=== PATIENT | male | born 1945 | race Caucasian/White ===

== ENCOUNTER 2016-05-10 04:44 | Inpatient (IN) | payer MEDICARE ==
[2016-05-10 05:56] LABS: Basophils % (Auto) 0.5 % (0.0-1.8); Eosinophils % (Auto) 2.6 % (0.0-4.3); Hematocrit 41.2 % (35.5-45.6); Hemoglobin 13.8 gm/dl (11.8-15.2); Mean Corpuscular HGB Conc 34 % (32-34); Mean Corpuscular Hemoglobin 29 pg (28-32); Mean Corpuscular Volume 88 fl (84-94); Platelet Count 417 K/mm3 (140-440); Red Cell Distribution Width 14.3 % (13.2-15.2); White Blood Count 14.8 K/mm3 (4.5-11.0)
[2016-05-10 06:09] LABS: BUN/Creatinine Ratio 17.77; Blood Urea Nitrogen 16 mg/dL (9-20); Carbon Dioxide 23 mmol/L (22-30); Glucose 342 mg/dL (75-100); Potassium 4.3 mmol/L (3.6-5.0); Sodium 136 mmol/L (137-145)
[2016-05-10 06:13] LABS: Anion Gap 20 mmol/L
[2016-05-10] MEDS ORDERED: ROCEPHIN/NS 1 GM/50 ML 50 ML IV ONE (06:16)
[2016-05-10 07:00] LABS: INR 0.85 (0.87-1.13)
[2016-05-10 07:01] LABS: Partial Thromboplastin Time 28.1 Sec. (24.2-36.6)
[2016-05-10 07:09] LABS: Creatine Kinase MB 2.7 ng/mL (0.0-4.0)
[2016-05-10 07:10] LABS: Alanine Aminotransferase 20 units/L (7-56); Albumin 3.8 g/dL (3.9-5); Alkaline Phosphatase 140 units/L (35-129); Bilirubin,Total 0.4 mg/dL (0.1-1.2); Magnesium 1.7 mg/dL (1.7-2.3); Total Protein 7.7 g/dL (6.3-8.2)
--- NOTE | 2016-05-10 07:24 | Admit Criteria Form ---
Admission Criteria Documentation: CARDIOLOGY GRG Clinical Indications for Admission to Inpatient Care ( Place 'X' for any and all applicable criteria): Hospital admission is needed for appropriate care of the patient because of ANY ONE of the following (1): [X ] I. Hemodynamic instability as indicated by ALL of the following (1)(2)(3 )(4)(5) [X ]a) Vital signs or other findings not as expected for chronic patient condition or baseline [ X]b) Instability indicated by ANY ONE of the following: [X ]i) Hypotension [ ]ii) Symptomatic Tachycardia unresponsive to treatment ( e.g., analgesia, fluids, sedation as indicated) [ ]iii) Inadequate perfusion indicated by ANY ONE of the following: [ ] 1) Lactic acidosis (> 2 mmol/L) [ ] 2) New abnormal capillary refill (> 3 seconds) [ ] 3) Reduced urine output [ ] 4) New altered mental status [ ]iv) Orthostatic vital sign changes unresponsive to treatment (e.g., fluids) [ ]v) IV inotropic or vasopressor medication required to maintain adequate blood pressure or perfusion [ ] II. Severe heart failure as indicated by ANY ONE of the following(17)(18) [ ]a) Respiratory distress [ ]b) Hypotension [ ]c) Anasarca (refractory to outpatient therapy) [ ]d) Cardiac arrhythmias of immediate concern [ ]e) Myocardial ischemia [ ] III. Cardiac arrhythmias or findings of immediate concern indicated by ANY ONE of the following (19)(20): [ ] a) Heart rhythms that are inherently dangerous or unstable indicated by ANY ONE of the following (21)(22)(23): [ ] i) Resuscitated ventricular fibrillation or cardiac arrest [ ] ii) Ventricular escape rhythm [ ] iii) Sustained ventricular tachycardia (30 seconds or more of ventricular rhythm at greater than 100 beats per minute) [ ] iv) Nonsustained ventricular tachycardia and ANY ONE of the following: [ ] 1) Suspected cardiac ischemia as cause or consequence of ventricular tachycardia [ ] 2) In setting of acute myocarditis [ ] b) Unstable cardiac conduction defects indicated by ANY ONE of the following(23)(24)(25) [ ] i) Type II second-degree atrioventricular block [ ]ii) Third-degree atrioventricular block [ ]iii) New-onset left bundle branch block with suspected myocardial ischemia [ ]c) Any heart rhythm and ANY ONE of the following (21)(22)(26)(27) (28) [ ] i) Continuous long-term ECG monitoring needed (e.g., initiation of drug requiring monitoring for more than 24 hours) [ ] ii) Patient has automatic implanted cardioverter defibrillator that is repeatedly firing, malfunctioning, or in need of immediate adjustment of settings beyond the scope of ambulatory or observation care [ ]d) Heart rhythms of concern due to ANY ONE of the following: [ ] i) Hypotension [ ] ii) Respiratory distress [ ] iii) Association with other significant symptoms (e.g., bradycardia with syncope or ongoing dizziness, supraventricular tachycardia with chest pain (14)(15)(17) [ ] IV. Monitoring for cardiac contusion beyond the scope of observation care needed [A](30)(31)(32) [ ] V. Surgical or device complication (e.g., valve replacement complication , pacemaker dysfunction) (35)(41)(44)(45)(46) [ ] . Inpatient palliative care needed. [B](49) Also use Inpatient Palliative Care Criteria [ ] VII. Nonbacterial thrombotic (marantic) endocarditis (36)(43)(47)(48) [ ] VIII. Cardiology condition, symptom, or finding for which emergency and observation care has failed or are not considered appropriate. [ ] IX. Acute valvular disease requiring inpatient as indicated by ANY ONE of the following (41) [ ]a) Acute valvular regurgitation (42) [ ]b) Noninfectious valvulitis (43) [ ]c) Obstructive valve thrombosis [ ]d) Paravalvular leak [ ]e) Other significant valvular disorder remaining after emergency or observation level of care (as appropriate) [ ]X. Pericardial disease requiring inpatient treatment as indicated by ANY ONE of the following (33)(34)(35)(36)(37) [ ]a) Suspected tamponade (38)(39)(40) [ ]b) Hemopericardium [ ]c) Other significant pericardial disorder remaining after emergency or observation level of care (as appropriate) [ ] XI. Cardiac ischemia beyond scope of emergency and observation care. [ ] XII. Hypertension requiring inpatient treatment as indicated by ANY ONE of the following (6)(7)(8) [ ]a) SBP greater than 220 mm Hg or DBP greater than 120 mmHg despite treatment [ ]b) SBP greater than 140 mm Hg or DBP greater than 100 mm Hg with evidence of acute end organ damage as indicated by ANY ONE of the following [ ] i) Altered mental status [ ] ii) Acute renal failure as indicated by new onset of ANY ONE of the following (9)(10)(11)(12)(13) [ ]1) 3-fold rise in serum creatinine from baseline [ ]2) Serum creatinine greater than 4 mg/dL ( 354 micromoles/L) with acute rise greater than 0.5 mg/dL (44.2 micromoles/L) [ ]3) Reduction of more than 75% in estimated glomerular filtration rate from baseline [ ]4) Estimated glomerular filtration rate less than 35 mL/min/1.73m2 (0.59 mL/sec/1.73m2) in child up to 18 years of age [ ]5) Cessation of urine output indicated by ALL of the following [ ]A. Adequate volume status [ ]B. Inadequate urine output as indicated by ANY ONE of the following [ ]a. Urine output less than 0.3 mL/kg/hr for 24 hours [ ]b. Anuria (urine output less than 0.1 mL/kg/hr) for 12 hours [ ] iii) Aortic dissection [ ] iv) Myocardial Ischemia [ ] v) Left ventricular heart failure [ ]vi) Retinal Hemorrhage [ ]vii) Other significant finding [ ]c) Hypertension in child requiring inpatient treatment as indicated by ALL of the following(14)(15)(16) [ ] i) Outpatient treatment not effective, not available, or not appropriate [ ]ii) SBP or DBP greater than 95th percentile for age [ ]iii) Evidence of acute end organ damage as indicated by ANY ONE of the following [ ]1) Altered mental status [ ]2) Acute renal failure as indicated by new onset of ANY ONE of the following(9)(10)(11)(12)(13) [ ]A. 3-fold rise in serum creatinine from baseline [ ]B. Serum creatinine greater than 4 mg/dL (354 micromoles/L) with acute rise greater than 0.5 mg/dL (44.2 micromoles/L) [ ]C. Reduction of more than 75% in estimated glomerular filtration rate from baseline [ ]D. Estimated glomerular filtration rate less than 35 mL/min/1.73m2 (0.59 mL/sec/1.73m2) in child up to 18 years of age [ ]E. Cessation of urine output indicated by ALL of the following [ ]a. Adequate volume status [ ]b. Inadequate urine output as indicated by ANY ONE of the following [ ]i) Urine output less than 0.3 mL/kg/hr for 24 hours [ ]ii) Anuria ( urine output less than 0.1 mL/kg/hr) for 12 hours [ ]3) Severe headache [ ]4) Visual disturbance [ ]5) Retinal hemorrhage [ ]6) Other significant finding [ ]XIII. Complications of transplanted heart indicated by ANY ONE of the following(61): [ ]a) Acute graft rejection requiring inpatient management (eg, intravenous immunosuppression)(62)(63) [ ]b) Acute graft heart failure indicated by ANY ONE of the following(64): [ ]i) Hemodynamic instability [ ]ii) Cardiac arrhythmias of immediate concern [ ]iii) Pulmonary edema that is very severe (eg, mechanical ventilation needed, imminent or likely, need for 100% oxygen to keep oxygen saturation above 90%) [ ]iv) Pulmonary edema that is persistent as indicated by ALL of the following: [ ]1) New need for oxygen therapy to keep oxygen saturation above 90% (or increased FiO2 need from baseline) [ ]2) Has not improved sufficiently with emergency department or observation care IV diuretics or other heart failure treatments[E] [ ]v) Altered mental status that is severe or persistent [ ]vi) Increased creatinine (new on laboratory test) with reduction of more than 50% in estimated glomerular filtration rate from baseline [ ]vii) Progressively (ongoing) rising creatinine (known from past laboratory test) with reduction of more than 25% in estimated glomerular filtration rate from baseline [ ]viii) Acute renal failure [ ]ix) Acute peripheral ischemia (eg, examination shows pulseless, cool, mottled, or cyanotic extremity) [ ]x) Pulmonary artery catheter monitoring needed [ ]xi) Other sign or symptom of heart failure requiring inpatient treatment (ie, too severe or not responsive to outpatient and observation care treatment) [ ]c) Infection requiring inpatient management (eg, Hemodynamic instability, need for intravenous antimicrobial treatment)(66)(67)(68)(69)(70) [ ]d) Cardiac allograft vasculopathy requiring inpatient management ( eg evidence of cardiac ischemia)(71) [ ]e) Other complication of transplanted heart (eg, stroke, severe pulmonary hypertension, severe valvular dysfunction) requiring inpatient management(72) The original [facility] content created by [email or web address] has been revised. The portions of the content which have been revised are identified through the use of italic text or in bold, and [facility] has neither reviewed nor approved the modified material. All other unmodified content is copyright [email or web address]. Please see references footnoted in the original [facility] edition 2016 Admission Criteria Met: Yes
[2016-05-10 07:31] LABS: Bilirubin,Direct < 0.2 mg/dL (0-0.2)
--- NOTE | 2016-05-10 07:51 | Emergency Department Report ---
ED General Adult HPI - General Chief complaint: High BP Stated complaint: HYPERTENSIVE CRISIS Time Seen by Provider: 05/10/16 06:12 Source: patient, family Mode of arrival: Stretcher Limitations: Language Barrier - History of Present Illness Initial comments: Is a patient that was transported deferred to this facility for admission for uncontrolled swings in blood pressure. According to his son he went to [place] yesterday for a routine visit. He was found to be hypotensive. He was placed in a CDU. According to the available information he has a history of chronic hypertension coronary artery disease hyperlipidemia anemia colonic polyps and diabetes. He arrives with blood work from the CDU of [place]. He is noted to have a white count there of 10.6 hemoglobin 12.5 daily count of 384,000 electrolytes to include a glucose of 358 BUN of 24 creatinine of 1.4 and a normal CO2. His anion gap was 10. He had an elevated lactic acid of 2.9. Troponin was negative. I do not believe he was given antibiotics. Apparently this morning after the patient had been given IV fluids he was hypertensive. Therefore the [place] physician gave him IV hydralazine and labetalol prior to arrival. His initial blood pressure here was really quite elevated at 244/130. However, with his recent prescription of IV antihypertensive medication I awaited further readings. The blood pressure was next at about 170/100 or so. Subsequently without additional intervention the patient's blood pressure dropped again into the 70s. He was given some IV fluid. His blood pressure was again hypertensive. The last blood pressure is 131/74. I obtained blood cultures and gave him 1 dose of ceftriaxone consideration of his hypotension and elevated lactic acid level at the [place] CDU. At the time of my encounter the patient has no complaint of pain to of weakness no complaint of neurological symptoms. He has had no respiratory difficulty. -: hour(s) Severity scale (0 -10): 0 Treatments Prior to Arrival: other (see above) - Related Data Home Medications Medication Instructions Recorded Confirmed Last Taken Aspirin EC [Aspirin Enteric Coated 81 mg PO QDAY 02/03/16 02/03/16 Unknown TAB] AtorvaSTATin [Lipitor] 40 mg PO DAILY 02/03/16 02/03/16 Unknown Carvedilol [Coreg] 3.125 mg PO BID 02/03/16 02/03/16 Unknown Clopidogrel [Plavix] 75 mg PO QDAY 02/03/16 02/03/16 Unknown FLUoxetine [PROzac] 40 mg PO QDAY 02/03/16 02/03/16 Unknown Insulin Aspart [NovoLOG Flexpen] 8 units SQ AC 02/03/16 02/03/16 Unknown Insulin Detemir [Levemir VIAL] 35 unit SQ QHS 02/03/16 02/03/16 Unknown Tamsulosin [Flomax] 0.4 mg PO QDAY 02/03/16 02/03/16 Unknown Previous Rx's Medication Instructions Recorded Last Taken Type Famotidine/Ca Carb/Mag Hydrox 1 each PO BID #20 tab.chew 02/06/16 Unknown Rx [Pepcid Complete Tablet Chew] Oxycodone HCl/Acetaminophen 1 each PO Q12H PRN #10 tablet 02/06/16 Unknown Rx [Percocet 2.5/325 mg] Allergies Allergy/AdvReac Type Severity Reaction Status Date / Time No Known Allergies Allergy Unverified 02/24/13 08:38 ED Review of Systems ROS: Stated complaint: HYPERTENSIVE CRISIS Other details as noted in HPI Constitutional: denies: chills, fever Eyes: denies: eye pain, eye discharge, vision change ENT: denies: ear pain, throat pain Respiratory: denies: cough, shortness of breath, wheezing Cardiovascular: denies: chest pain, palpitations Endocrine: no symptoms reported Gastrointestinal: denies: abdominal pain, nausea, diarrhea Genitourinary: denies: urgency, dysuria Musculoskeletal: denies: back pain, joint swelling, arthralgia Skin: denies: rash, lesions Neurological: denies: headache, weakness, paresthesias Psychiatric: denies: anxiety, depression Hematological/Lymphatic: denies: easy bleeding, easy bruising ED Past Medical Hx - Past Medical History Hx Hypertension: Yes Hx CVA: Yes Hx Heart Attack/AMI: No Hx Congestive Heart Failure: No Hx Diabetes: Yes Hx Deep Vein Thrombosis: No Hx GERD: Yes Hx Renal Disease: Yes (CKD 3) Hx Seizures: No Hx Dementia: No Additional medical history: chronic kidney disease, neuropathy, hyperlipidemia, anemia - Surgical History Hx Coronary Stent: No Additional Surgical History: pt family stated no surgeries - Social History Smoking Status: Never Smoker Substance Use Type: None - Medications Home Medications: Home Medications Medication Instructions Recorded Confirmed Last Taken Type Aspirin EC [Aspirin Enteric Coated 81 mg PO QDAY 02/03/16 02/03/16 Unknown History TAB] AtorvaSTATin [Lipitor] 40 mg PO DAILY 02/03/16 02/03/16 Unknown History Carvedilol [Coreg] 3.125 mg PO BID 02/03/16 02/03/16 Unknown History Clopidogrel [Plavix] 75 mg PO QDAY 02/03/16 02/03/16 Unknown History FLUoxetine [PROzac] 40 mg PO QDAY 02/03/16 02/03/16 Unknown History Insulin Aspart [NovoLOG Flexpen] 8 units SQ AC 02/03/16 02/03/16 Unknown History Insulin Detemir [Levemir VIAL] 35 unit SQ QHS 02/03/16 02/03/16 Unknown History Tamsulosin [Flomax] 0.4 mg PO QDAY 02/03/16 02/03/16 Unknown History Famotidine/Ca Carb/Mag Hydrox 1 each PO BID #20 tab.chew 02/06/16 Unknown Rx [Pepcid Complete Tablet Chew] Oxycodone HCl/Acetaminophen 1 each PO Q12H PRN #10 tablet 02/06/16 Unknown Rx [Percocet 2.5/325 mg] ED Physical Exam - General Limitations: No Limitations General appearance: alert, in no apparent distress - Head Head exam: Present: atraumatic, normocephalic - Eye Eye exam: Present: normal appearance, PERRL, EOMI. Absent: scleral icterus - ENT ENT exam: Present: mucous membranes moist - Neck Neck exam: Present: normal inspection - Respiratory Respiratory exam: Present: normal lung sounds bilaterally. Absent: respiratory distress - Cardiovascular Cardiovascular Exam: Present: regular rate, normal rhythm. Absent: systolic murmur, diastolic murmur, rubs, gallop - GI/Abdominal GI/Abdominal exam: Present: soft, normal bowel sounds. Absent: distended, tenderness, guarding, rebound, rigid - Rectal Rectal exam: Present: deferred - Extremities Exam Extremities exam: Present: normal inspection - Back Exam Back exam: Present: normal inspection - Neurological Exam Neurological exam: Present: alert, oriented X3, CN II-XII intact. Absent: motor sensory deficit - Psychiatric Psychiatric exam: Present: normal affect, normal mood - Skin Skin exam: Present: warm, dry, intact, normal color. Absent: rash ED Course Vital Signs 05/10/16 05/10/16 05/10/16 04:51 05:01 05:06 Temperature 97.9 F Pulse Rate 80 81 81 Respiratory 14 13 Rate Blood Pressure 244/130 244/130 O2 Sat by Pulse 98 98 98 Oximetry 05/10/16 05/10/16 05/10/16 05:12 06:00 07:00 Temperature Pulse Rate 86 87 Respiratory 18 12 14 Rate Blood Pressure 225/122 186/107 O2 Sat by Pulse 98 97 97 Oximetry 05/10/16 05/10/16 05/10/16 07:03 08:00 09:00 Temperature Pulse Rate 88 86 90 Respiratory 13 14 14 Rate Blood Pressure 186/107 163/92 72/46 O2 Sat by Pulse 97 98 96 Oximetry - Reevaluation(s) Reevaluation #1: Discussed with Dr. Jolley who is admitted the patient to the hospitalist service. 05/10/16 10:58 ED Medical Decision Making - Lab Data Result diagrams: 05/10/16 05:33 05/10/16 05:33 Laboratory Results - last 24 hr 05/10/16 05/10/16 05/10/16 05:33 05:33 06:28 WBC 14.8 H RBC 4.70 Hgb 13.8 Hct 41.2 MCV 88 MCH 29 MCHC 34 RDW 14.3 Plt Count 417 Lymph % (Auto) 15.9 Dillon % (Auto) 4.9 Eos % (Auto) 2.6 Baso % (Auto) 0.5 Lymph # 2.4 Dillon # 0.7 Eos # 0.4 Baso # 0.1 Seg Neutrophils % 76.1 H Seg Neutrophils # 11.3 H PT 11.5 L INR 0.85 L APTT 28.1 Sodium 136 L Potassium 4.3 Chloride 97.0 L Carbon Dioxide 23 Anion Gap 20 BUN 16 Creatinine 0.9 Estimated GFR > 60 BUN/Creatinine Ratio 17.77 Glucose 342 H Lactic Acid Calcium 9.0 Magnesium Total Bilirubin Direct Bilirubin AST ALT Alkaline Phosphatase Total Creatine Kinase CK-MB (CK-2) CK-MB (CK-2) Rel Index Troponin T Total Protein Albumin Albumin/Globulin Ratio Ketones 05/10/16 05/10/16 05/10/16 06:28 06:28 06:28 WBC RBC Hgb Hct MCV MCH MCHC RDW Plt Count Lymph % (Auto) Dillon % (Auto) Eos % (Auto) Baso % (Auto) Lymph # Dillon # Eos # Baso # Seg Neutrophils % Seg Neutrophils # PT INR APTT Sodium Potassium Chloride Carbon Dioxide Anion Gap BUN Creatinine Estimated GFR BUN/Creatinine Ratio Glucose Lactic Acid 1.4 Calcium Magnesium 1.7 Total Bilirubin 0.4 Direct Bilirubin < 0.2 AST 21 ALT 20 Alkaline Phosphatase 140 H Total Creatine Kinase 58 CK-MB (CK-2) 2.7 CK-MB (CK-2) Rel Index 4.6 H Troponin T < 0.010 Total Protein 7.7 Albumin 3.8 L Albumin/Globulin Ratio 1.0 Ketones 05/10/16 06:28 WBC RBC Hgb Hct MCV MCH MCHC RDW Plt Count Lymph % (Auto) Dillon % (Auto) Eos % (Auto) Baso % (Auto) Lymph # Dillon # Eos # Baso # Seg Neutrophils % Seg Neutrophils # PT INR APTT Sodium Potassium Chloride Carbon Dioxide Anion Gap BUN Creatinine Estimated GFR BUN/Creatinine Ratio Glucose Lactic Acid Calcium Magnesium Total Bilirubin Direct Bilirubin AST ALT Alkaline Phosphatase Total Creatine Kinase CK-MB (CK-2) CK-MB (CK-2) Rel Index Troponin T Total Protein Albumin Albumin/Globulin Ratio Ketones 6.1 H Laboratory Results - last 24 hr 05/10/16 05/10/16 05/10/16 05:33 05:33 06:28 WBC 14.8 H RBC 4.70 Hgb 13.8 Hct 41.2 MCV 88 MCH 29 MCHC 34 RDW 14.3 Plt Count 417 Lymph % (Auto) 15.9 Dillon % (Auto) 4.9 Eos % (Auto) 2.6 Baso % (Auto) 0.5 Lymph # 2.4 Dillon # 0.7 Eos # 0.4 Baso # 0.1 Seg Neutrophils % 76.1 H Seg Neutrophils # 11.3 H PT 11.5 L INR 0.85 L APTT 28.1 Sodium 136 L Potassium 4.3 Chloride 97.0 L Carbon Dioxide 23 Anion Gap 20 BUN 16 Creatinine 0.9 Estimated GFR > 60 BUN/Creatinine Ratio 17.77 Glucose 342 H Lactic Acid Calcium 9.0 Magnesium Total Bilirubin Direct Bilirubin AST ALT Alkaline Phosphatase Total Creatine Kinase CK-MB (CK-2) CK-MB (CK-2) Rel Index Troponin T Total Protein Albumin Albumin/Globulin Ratio Ketones 05/10/16 05/10/16 05/10/16 06:28 06:28 06:28 WBC RBC Hgb Hct MCV MCH MCHC RDW Plt Count Lymph % (Auto) Dillon % (Auto) Eos % (Auto) Baso % (Auto) Lymph # Dillon # Eos # Baso # Seg Neutrophils % Seg Neutrophils # PT INR APTT Sodium Potassium Chloride Carbon Dioxide Anion Gap BUN Creatinine Estimated GFR BUN/Creatinine Ratio Glucose Lactic Acid 1.4 Calcium Magnesium 1.7 Total Bilirubin 0.4 Direct Bilirubin < 0.2 AST 21 ALT 20 Alkaline Phosphatase 140 H Total Creatine Kinase 58 CK-MB (CK-2) 2.7 CK-MB (CK-2) Rel Index 4.6 H Troponin T < 0.010 Total Protein 7.7 Albumin 3.8 L Albumin/Globulin Ratio 1.0 Ketones 05/10/16 06:28 WBC RBC Hgb Hct MCV MCH MCHC RDW Plt Count Lymph % (Auto) Dillon % (Auto) Eos % (Auto) Baso % (Auto) Lymph # Dillon # Eos # Baso # Seg Neutrophils % Seg Neutrophils # PT INR APTT Sodium Potassium Chloride Carbon Dioxide Anion Gap BUN Creatinine Estimated GFR BUN/Creatinine Ratio Glucose Lactic Acid Calcium Magnesium Total Bilirubin Direct Bilirubin AST ALT Alkaline Phosphatase Total Creatine Kinase CK-MB (CK-2) CK-MB (CK-2) Rel Index Troponin T Total Protein Albumin Albumin/Globulin Ratio Ketones 6.1 H - EKG Data -: EKG Interpreted by Me EKG shows normal: sinus rhythm, axis, intervals, QRS complexes, ST-T waves Rate: normal - EKG Data When compared to previous EKG there are: no significant change Interpretation: nonspecific ST-T wave seven, LVH old inferior zone 05/10/16 10:54 - Radiology Data interpreted by me: Chest x-ray showed no acute process. It was also noted that the patient had a negative ETT angiogram of the chest in January 2016. Critical Care Time: Yes Critical care time in (mins) excluding proc time.: 45 Critical care attestation.: If time is entered above; I have spent that time in minutes in the direct care of this critically ill patient, excluding procedure time. ED Disposition Clinical Impression: Labile hypertension, Hyperglycemic coma with insulin-dependent diabetes mellitus Hypotension Qualifiers: Hypotension type: unspecified hypotension type Qualified Code(s): I95.9 - Hypotension, unspecified Disposition: OP ADMITTED IP TO THIS HOSP Is pt being admited?: Yes Does the pt Need Aspirin: Yes Condition: Stable Instructions: Hypertension (ED), Diabetes Mellitus Type 2 in Adults (ED) Time of Disposition: 10:58
--- NOTE | 2016-05-10 07:53 | XRay Report ---
AP CHEST: HISTORY: Hypertension AP view of the chest demonstrates a normal mediastinal and cardiac contour with clear lungs and normal bony and soft tissue structures. Mild ectasia of the aorta. IMPRESSION: Unremarkable AP chest.
[2016-05-10 09:01] LABS: Bilirubin,Urine NEG (Negative); Blood,Urine NEG (Negative); Ketones,Urine 20 mg/dL (Negative); Leukocyte Esterase,Urine NEG (Negative); Mucus,Urine FEW /HPF; Nitrite,Urine NEG (Negative); Urobilinogen,Urine < 2.0 mg/dL (<2.0); WBC,Urine < 1.0 /HPF (0.0-6.0)
[2016-05-10] MEDS ORDERED: NACL 0.9% 1000 ML 1,000 ML ONE (09:14)
[2016-05-10] MEDS ORDERED: NACL 0.9% 1000 ML 1,000 ML IV ONE (09:36)
[2016-05-10] MEDS ORDERED: BABY ASPIRIN PO ONE (10:59)
--- NOTE | 2016-05-10 11:14 | Event Note ---
Date: 05/10/16
[2016-05-10] MEDS ORDERED: FAMOTIDINE PO SCH (11:15)
[2016-05-10] MEDS ORDERED: CA CARB PO SCH (11:15)
[2016-05-10] MEDS ORDERED: MAG HYDROX PO SCH (11:15)
[2016-05-10] MEDS ORDERED: DULCOLAX PR PRN (11:20)
[2016-05-10] MEDS ORDERED: TYLENOL PO PRN (11:20)
[2016-05-10] MEDS ORDERED: ZOFRAN IV PRN (11:20)
[2016-05-10] MEDS ORDERED: MILK OF MAGNESIA PO PRN (11:20)
[2016-05-10] MEDS ORDERED: DILAUDID IV PRN (11:20)
[2016-05-10] MEDS ORDERED: NON-FORMULARY (Insulin Aspart [Novolog Flexpen] 8 UNITS) SQ SCH (11:30)
[2016-05-10] MEDS ORDERED: D5NS 1,000 ML IV SCH (12:00)
[2016-05-10] MEDS ORDERED: NOVOLOG SUB-Q ONE (12:19)
[2016-05-10] MEDS: NOVOLOG SUB-Q SCH ×3 (12:27→22:06)
[2016-05-10] MEDS ORDERED: APRESOLINE IV ONE (14:27)
[2016-05-10] MEDS ORDERED: NACL 0.9% 1000 ML 1,000 ML IV SCH (15:00)
[2016-05-10] MEDS ORDERED: NORMODYNE IV ONE ×2 (15:16→15:21)
[2016-05-10] MEDS: CARDENE DRIP 40 MG/200 ML 200 ML IV SCH (16:40)
[2016-05-10] MEDS: LEVEMIR SUB-Q SCH (22:52)
[2016-05-11 04:50] LABS: Basophils % (Auto) 0.4 % (0.0-1.8); Eosinophils % (Auto) 1.6 % (0.0-4.3); Hematocrit 38.7 % (35.5-45.6); Hemoglobin 12.9 gm/dl (11.8-15.2); Mean Corpuscular HGB Conc 33 % (32-34); Mean Corpuscular Hemoglobin 30 pg (28-32); Mean Corpuscular Volume 89 fl (84-94); Platelet Count 374 K/mm3 (140-440); Red Blood Count 4.35 M/mm3 (3.65-5.03); White Blood Count 9.1 K/mm3 (4.5-11.0)
[2016-05-11 05:12] LABS: Alanine Aminotransferase 16 units/L (7-56); Albumin 3.4 g/dL (3.9-5); Alkaline Phosphatase 110 units/L (35-129); Anion Gap 16 mmol/L; BUN/Creatinine Ratio 19.09; Bilirubin,Total 0.2 mg/dL (0.1-1.2); Blood Urea Nitrogen 21 mg/dL (9-20); Calcium 8.9 mg/dL (8.4-10.2); Carbon Dioxide 26 mmol/L (22-30); Chloride 101.1 mmol/L (98-107); Glucose 93 mg/dL (75-100); Potassium 3.7 mmol/L (3.6-5.0); Sodium 139 mmol/L (137-145); Total Protein 6.7 g/dL (6.3-8.2)
[2016-05-11] MEDS ORDERED: D50W (25GM) IV ONE (08:14)
[2016-05-11] MEDS: CARDENE DRIP 40 MG/200 ML 200 ML IV SCH (08:17)
[2016-05-11] MEDS: PROzac PO SCH (09:13)
[2016-05-11] MEDS: LOVENOX SUB-Q SCH (09:13)
[2016-05-11] MEDS: NOVOLOG SUB-Q SCH ×7 (09:13→21:56)
[2016-05-11] MEDS: PLAVIX PO SCH (09:14)
[2016-05-11] MEDS: HALFPRIN EC PO SCH (09:14)
[2016-05-11] MEDS: FLOMAX PO SCH (10:13)
--- NOTE | 2016-05-11 15:22 | Consultation ---
History of Present Illness - Reason for Consult Consult date: 05/11/16 ICU Requesting physician: CARIE TAVERAS - History of Present Illness 70 y/o male transferred to the ED from [place] secondary to elevated BP. Started on cardene drip and transferred to ICU. Unsure of etiology of elevated BP. Cardene drip now off. Past History Past Medical History: hypertension, hyperlipidemia, other (depression/anxiety) Medications and Allergies Allergies Allergy/AdvReac Type Severity Reaction Status Date / Time No Known Allergies Allergy Unverified 02/24/13 08:38 Home Medications Medication Instructions Recorded Confirmed Last Taken Type Aspirin EC [Aspirin Enteric Coated 81 mg PO QDAY 02/03/16 05/10/16 Unknown History TAB] AtorvaSTATin [Lipitor] 40 mg PO DAILY 02/03/16 05/10/16 Unknown History Carvedilol [Coreg] 3.125 mg PO BID 02/03/16 05/10/16 Unknown History Clopidogrel [Plavix] 75 mg PO QDAY 02/03/16 05/10/16 Unknown History FLUoxetine [PROzac] 40 mg PO QDAY 02/03/16 05/10/16 Unknown History Insulin Aspart [NovoLOG Flexpen] 8 units SQ AC 02/03/16 05/10/16 Unknown History Insulin Detemir [Levemir VIAL] 35 unit SQ QHS 02/03/16 05/10/16 Unknown History Tamsulosin [Flomax] 0.4 mg PO QDAY 02/03/16 05/10/16 Unknown History Lisinopril [Zestril] 20 mg PO QDAY 05/10/16 05/10/16 Unknown History Pantoprazole [Protonix] 40 mg PO QDAY 05/10/16 05/10/16 Unknown History levETIRAcetam [Keppra TAB] 500 mg PO BID 05/10/16 05/10/16 Unknown History Active Meds: Active Medications Acetaminophen (Tylenol) 650 mg PO Q4H PRN PRN Reason: Pain MILD(1-3)/Fever >100.5/BELTRAN Aspirin (Halfprin Ec) 81 mg PO QDAY [facility] Last Admin: 05/11/16 09:14 Dose: 81 mg Atorvastatin Calcium (Lipitor) 40 mg PO DAILY [facility] Last Admin: 05/11/16 09:14 Dose: 40 mg Bisacodyl (Dulcolax) 10 mg SC QDAY PRN PRN Reason: Constipation unrelieved by NOLAN Clopidogrel Bisulfate (Plavix) 75 mg PO QDAY [facility] Last Admin: 05/11/16 09:14 Dose: 75 mg Enoxaparin Sodium (Lovenox) 40 mg SUB-Q QDAY [facility] Last Admin: 05/11/16 09:13 Dose: 40 mg Fluoxetine HCl (Prozac) 40 mg PO QDAY [facility] Last Admin: 05/11/16 09:13 Dose: 40 mg Hydromorphone HCl (Dilaudid) 0.5 mg IV Q3H PRN PRN Reason: Pain , Severe (7-10) Last Admin: 05/10/16 22:07 Dose: 0.5 mg Sodium Chloride (Nacl 0.9% 1000 Ml) 1,000 mls @ 100 mls/hr IV DIRECT VAN Nicardipine/Sodium Chloride (Cardene Drip 40 Mg/200 Ml) 200 mls @ 25 mls/hr IV TITR VAN; 5 MG/HR PRN Reason: Protocol Last Titration: 05/11/16 14:00 Dose: 0 mg/hr Insulin Aspart (Novolog) 8 units SUB-Q AC [facility] Last Admin: 05/11/16 12:16 Dose: 8 units Insulin Aspart (Novolog) 0 units SUB-Q ACHS [facility] PRN Reason: Protocol Last Admin: 05/11/16 12:13 Dose: 3 units Insulin Detemir (Levemir) 35 units SUB-Q QHS [facility] Last Admin: 05/10/16 22:52 Dose: 35 units Magnesium Hydroxide (Milk Of Magnesia) 30 ml PO Q4H PRN PRN Reason: Constipation Miscellaneous Medication (Famotidine/Ca Carb/Mag Hydrox [Pepcid Complete Tablet Chew]) 1 each PO BID [facility] Last Admin: 05/10/16 14:23 Dose: Not Given Ondansetron HCl (Zofran) 4 mg IV Q8H PRN PRN Reason: N/V unrelieved by Marquislan Tamsulosin HCl (Flomax) 0.4 mg PO QDAY [facility] Last Admin: 05/11/16 10:13 Dose: 0.4 mg Review of Systems All systems: negative Exam - Constitutional Vitals: Temp Pulse Resp BP Pulse Ox 98.5 F 99 H 18 127/77 98 05/11/16 12:00 05/11/16 14:45 01/21/17 14:45 05/11/16 14:45 05/11/16 14:45 General appearance: Present: no acute distress - EENT Eyes: Present: PERRL, EOM intact - Neck Neck: Present: supple, normal ROM - Respiratory Respiratory: bilateral: CTA - Cardiovascular Rhythm: regular - Extremities Extremities: no ischemia, pulses intact - Abdominal General gastrointestinal: Present: soft, non-tender, non-distended Male genitourinary: Present: deferred - Rectal Rectal Exam: deferred Results - Labs CBC & Chem 7: 05/11/16 04:14 05/11/16 04:14 Labs: Abnormal lab results 05/10/16 05/10/16 05/11/16 Range/Units 17:16 21:28 04:14 [place] % (Auto) 9.9 H (0.0-7.3) % [place] # 0.9 H (0.0-0.8) K/mm3 BUN (9-20) mg/dL POC Glucose 388 H 307 H (70-105) Albumin (3.9-5) g/dL 05/11/16 05/11/16 Range/Units 04:14 08:58 [place] % (Auto) (0.0-7.3) % [place] # (0.0-0.8) K/mm3 BUN 21 H (9-20) mg/dL POC Glucose 243 H (70-105) Albumin 3.4 L (3.9-5) g/dL - Imaging and Cardiology Chest x-ray: image reviewed (Normal) Assessment and Plan 70 y/o male with hypertensive urgency. 1. Weaned Cardene drip off 2. Needs work up for secondary causes of hypertension 3. Suggest stopping IVF's 4. Stable for transfer out of ICU
--- NOTE | 2016-05-11 19:45 | History and Physical Report ---
CHIEF COMPLAINT: High blood pressure. HISTORY OF PRESENT ILLNESS: A 70-year-old male, brought in for uncontrolled blood pressure. His son took him to [facility] for a routine visit, he was found to be having low blood pressure. He was placed in observation. According to the patient because of the high blood pressure, coronary artery disease, and hyperlipidemia, he was sent from [facility] for further evaluation. He was noted to have white count of 10.6 and hemoglobin of 12.5. Glucose of 358, BUN of 24, creatinine 1.1, anion gap was 10, lactic acid was 2.9, and troponin was negative. He was not given any antibiotics. The patient was given IV hydralazine and labetalol prior to arrival. His initial blood pressure was quite elevated to 244/130 and then the blood pressure dropped to 170/100 and then to 131/74 and again went up to 240/140 on his admission. PAST MEDICAL HISTORY: Significant for coronary artery disease, insulin-dependent diabetes, hyperlipidemia, hypertension, BPH, chronic kidney disease, and neuropathy. CURRENT MEDICATIONS: Aspirin 81 mg daily, Lipitor 40 mg p.o. daily, Coreg 3.125 b.i.d., Plavix 75 mg p.o. daily, fluoxetine 40 mg p.o. daily, insulin NovoLog 8 units a.c., Levemir 35 units subcutaneous at bedtime, Flomax 0.4 mg p.o. daily, and Percocet at 2.5/325 q.12 hours. FAMILY HISTORY: Significant for hypertension. SOCIAL HISTORY: Does not smoke. No alcohol, no recreational drugs. PAST SURGICAL HISTORY: None. REVIEW OF SYSTEMS: CONSTITUTIONAL: No fever, no chills, no weight loss. HEENT: No sore throat. No postnasal drip. CARDIOVASCULAR AND RESPIRATORY: As mentioned with a high blood pressure and fluctuating. No shortness of breath. No chest pain. No palpitations. No diaphoresis. GASTROINTESTINAL: No nausea, no vomiting, no diarrhea. GENITOURINARY: No dysuria, no flank pain. MUSCULOSKELETAL: No joint pains. No muscle pains. SKIN: No rashes. CENTRAL NERVOUS SYSTEM: No syncope, no seizures. PSYCHIATRIC: Denies anxiety and depression. HEMATOLOGIC/LYMPHATIC: Denies easy bleeding and lymphadenopathy. NEUROLOGIC: A 14-point review of systems otherwise negative. PHYSICAL EXAMINATION: GENERAL: Elderly male lying in bed, cooperative during examination. VITAL SIGNS: Initial blood pressure was 227/129 and 228/134, 184/113. Later, it came down to 117/72 and 130/75. HEENT: Unremarkable. Pupils equal and reactive. NECK: Supple, no lymphadenopathy, no thyromegaly. LUNGS: Clear to auscultation and percussion. Good air entry. CARDIOVASCULAR: S1, S2 heard. No gallop, no murmur, no rub. Apical impulse in the left fifth intercostal space and midclavicular line. ABDOMEN: Soft and benign. No hepatosplenomegaly. No guarding, no rigidity. Hernial orifices are normal. EXTREMITIES: Good pedal pulses. No pedal edema. CENTRAL NERVOUS SYSTEM: Alert and oriented x4. Nonfocal exam. SKIN: Normal. LABORATORY DATA: White count is 9100, H and H is 12.9 and 38.7, platelet count is 374,000. Sodium is 139, potassium is 3.7, chloride is 101.1, bicarbonate is 26, anion gap is 16, BUN and creatinine is 21 and 1.1, glucose is 252, 388, and 307. Albumin is 3.4. DIAGNOSTIC DATA: EKG shows left ventricular hypertrophy. Nonspecific ST-T wave changes. ED COURSE: The patient was given multiple labetalol and hydralazine and there is no improvement, hence the patient was started on Cardene drip. ASSESSMENT AND PLAN: 1. Hypertensive emergency. The patient was started on IV Cardene drip and the patient transferred to the ICU. The patient also started on losartan 100 mg daily and to add Coreg and amlodipine as necessary. 2. Insulin-dependent diabetes. Continue insulin in his home insulin and coverage. 3. Benign prostatic hypertrophy. Continue tamsulosin 0.4 mg daily. 4. Coronary artery disease. Continue Plavix 75 mg daily. 5. Hyperlipidemia. Continue atorvastatin 40 mg p.o. daily. 6. Deep venous thrombosis prophylaxis, Lovenox 40 mg p.o. daily. CRITICAL CARE STATEMENT: Because of his possibility of a cardiorespiratory failure and severe high blood pressure, 40 minutes time was spent with the patient in managing his blood pressure. My time involved in data review and management, reviewing orders, reviewing labs, reviewing reports. Total critical care time spent about 30-40 minutes. JOB# [id number] LIGIA/GAUDENCIO EDGE
[2016-05-11] MEDS: LEVEMIR SUB-Q SCH (21:56)
[2016-05-11] MEDS: PEPCID PO SCH (21:57)
[2016-05-12] MEDS ORDERED: APRESOLINE ONE (05:42)
[2016-05-12] MEDS ORDERED: APRESOLINE IV STA (05:49)
--- NOTE | 2016-05-12 08:18 | Progress Note ---
Assessment and Plan - Patient Problems (1) Hypertensive emergency Current Visit: Yes Status: Acute Plan to address problem: titrate cardene drip and clinically indicated, monitor bp The high probability of a clinically significant, sudden or life threatening deterioration of the [cardiac, renal] system(s) required my full and direct attention, intervention and personal management. The aggregate critical care time was [45] minutes. This time is in addition to time spent performing reported procedures but includes the following: [x] Data Review and interpretation [x] Patient assessment and monitoring of vital signs [x] Documentation [x] Medication orders and management (2) Type I diabetes mellitus, uncontrolled Current Visit: No Status: Chronic Qualifiers: Diabetes mellitus complication status: with hyperglycemia Qualified Code(s) : E10.65 - Type 1 diabetes mellitus with hyperglycemia Plan to address problem: ADA diet, insulin accu check (3) DVT prophylaxis Current Visit: Yes Status: Acute History Interval history: Pt resting in bed, Pt denies pain, No reported nursing events. Pt BP Improved on cardene drip. Hospitalist Physical - Constitutional Vitals: Temp Pulse Resp BP Pulse Ox 97.7 F 125 H 14 127/81 96 05/12/16 08:00 05/12/16 08:00 05/12/16 08:00 05/12/16 08:00 05/12/16 08:00 General appearance: Present: no acute distress - EENT Eyes: Present: PERRL ENT: hearing intact - Neck Neck: Present: supple - Respiratory Respiratory effort: normal Respiratory: bilateral: CTA - Cardiovascular Rhythm: regular Heart Sounds: Present: S1 & S2 - Extremities Extremities: no ischemia Peripheral Pulses: within normal limits - Abdominal General gastrointestinal: soft, non-tender, non-distended - Integumentary Integumentary: Present: clear, dry - Psychiatric Psychiatric: appropriate mood/affect, cooperative - Neurologic Neurologic: CNII-XII intact Results - Labs CBC & Chem 7: 05/11/16 04:14 05/11/16 04:14 Labs: Laboratory Last Values WBC 9.1 K/mm3 (4.5-11.0) 05/11/16 04:14 RBC 4.35 M/mm3 (3.65-5.03) 05/11/16 04:14 Hgb 12.9 gm/dl (11.8-15.2) 05/11/16 04:14 Hct 38.7 % (35.5-45.6) 05/11/16 04:14 MCV 89 fl (84-94) 05/11/16 04:14 MCH 30 pg (28-32) 05/11/16 04:14 MCHC 33 % (32-34) 05/11/16 04:14 RDW 14.0 % (13.2-15.2) 05/11/16 04:14 Plt Count 374 K/mm3 (140-440) 05/11/16 04:14 Lymph % (Auto) 28.4 % (13.4-35.0) 05/11/16 04:14 [place] % (Auto) 9.9 % (0.0-7.3) H 05/11/16 04:14 Eos % (Auto) 1.6 % (0.0-4.3) 05/11/16 04:14 Baso % (Auto) 0.4 % (0.0-1.8) 05/11/16 04:14 Lymph # 2.6 K/mm3 (1.2-5.4) 05/11/16 04:14 [place] # 0.9 K/mm3 (0.0-0.8) H 05/11/16 04:14 Eos # 0.1 K/mm3 (0.0-0.4) 05/11/16 04:14 Baso # 0.0 K/mm3 (0.0-0.1) 05/11/16 04:14 Seg Neutrophils % 59.7 % (40.0-70.0) 05/11/16 04:14 Seg Neutrophils # 5.4 K/mm3 (1.8-7.7) 05/11/16 04:14 PT 11.5 Sec. (12.2-14.9) L 05/10/16 06:28 INR 0.85 (0.87-1.13) L 05/10/16 06:28 APTT 28.1 Sec. (24.2-36.6) 05/10/16 06:28 Sodium 139 mmol/L (137-145) 05/11/16 04:14 Potassium 3.7 mmol/L (3.6-5.0) 05/11/16 04:14 Chloride 101.1 mmol/L (98-107) 05/11/16 04:14 Carbon Dioxide 26 mmol/L (22-30) 05/11/16 04:14 Anion Gap 16 mmol/L 05/11/16 04:14 BUN 21 mg/dL (9-20) H 05/11/16 04:14 Creatinine 1.1 mg/dL (0.8-1.5) 05/11/16 04:14 Estimated GFR > 60 ml/min 05/11/16 04:14 BUN/Creatinine Ratio 19.09 % 05/11/16 04:14 Glucose 93 mg/dL (75-100) 05/11/16 04:14 POC Glucose 132 (70-105) H 05/11/16 21:20 Lactic Acid 1.4 mmol/L (0.7-2.0) 05/10/16 06:28 Calcium 8.9 mg/dL (8.4-10.2) 05/11/16 04:14 Magnesium 1.7 mg/dL (1.7-2.3) 05/10/16 06:28 Total Bilirubin 0.2 mg/dL (0.1-1.2) 05/11/16 04:14 Direct Bilirubin < 0.2 mg/dL (0-0.2) 05/10/16 06:28 AST 16 units/L (5-40) 05/11/16 04:14 ALT 16 units/L (7-56) 05/11/16 04:14 Alkaline Phosphatase 110 units/L (35-129) 05/11/16 04:14 Total Creatine Kinase 58 units/L (55-170) 05/10/16 06:28 CK-MB (CK-2) 2.7 ng/mL (0.0-4.0) 05/10/16 06:28 CK-MB (CK-2) Rel Index 4.6 (0-4) H 05/10/16 06:28 Troponin T < 0.010 ng/mL (0.00-0.029) 05/10/16 06:28 Total Protein 6.7 g/dL (6.3-8.2) 05/11/16 04:14 Albumin 3.4 g/dL (3.9-5) L 05/11/16 04:14 Albumin/Globulin Ratio 1.0 % 05/11/16 04:14 Urine Color Straw (Yellow) 05/10/16 08:45 Urine Turbidity Clear (Clear) 05/10/16 08:45 Urine pH 6.0 (5.0-7.0) 05/10/16 08:45 Ur Specific [place] 1.012 (1.003-1.030) 05/10/16 08:45 Urine Protein 100 mg/dl mg/dL (Negative) 05/10/16 08:45 Urine Glucose (UA) >=500 mg/dL (Negative) 05/10/16 08:45 Urine Ketones 20 mg/dL (Negative) 05/10/16 08:45 Urine Blood Neg (Negative) 05/10/16 08:45 Urine Nitrite Neg (Negative) 05/10/16 08:45 Urine Bilirubin Neg (Negative) 05/10/16 08:45 Urine Urobilinogen < 2.0 mg/dL (<2.0) 05/10/16 08:45 Ur Leukocyte Esterase Neg (Negative) 05/10/16 08:45 Urine WBC (Auto) < 1.0 /HPF (0.0-6.0) 05/10/16 08:45 Urine RBC (Auto) 4.0 /HPF (0.0-6.0) 05/10/16 08:45 U Epithel Cells (Auto) < 1.0 /HPF (0-13.0) 05/10/16 08:45 Urine Mucus Few /HPF 05/10/16 08:45 Ketones 6.1 mg/dL (0.2-2.8) H 05/10/16 06:28
[2016-05-12] MEDS: NOVOLOG SUB-Q SCH ×7 (08:22→22:09)
--- NOTE | 2016-05-12 08:29 | Progress Note ---
Assessment and Plan 70 y/o male with hypertensive urgency. 1. Cardene drip off 2. Needs work up for secondary causes of hypertension 3. Suggest stopping IVF's 4. Stable for transfer out of ICU Subjective Date of service: 05/12/16 Interval history: No acute events. BP stable Objective - Constitutional Vitals: Vital Signs - 12hr 05/11/16 05/11/16 05/11/16 20:30 20:42 20:46 Temperature Pulse Rate 96 H 94 H 93 H Respiratory 19 14 14 Rate Blood Pressure 108/67 108/67 117/70 O2 Sat by Pulse 97 97 97 Oximetry 05/11/16 05/11/16 05/11/16 21:00 21:16 21:30 Temperature Pulse Rate 94 H 94 H 92 H Respiratory 17 18 16 Rate Blood Pressure 105/69 105/69 105/68 O2 Sat by Pulse 97 97 97 Oximetry 05/11/16 05/11/16 05/11/16 21:46 22:00 22:16 Temperature Pulse Rate 91 H 94 H 91 H Respiratory 17 15 17 Rate Blood Pressure 105/68 92/58 92/58 O2 Sat by Pulse 97 98 98 Oximetry 05/11/16 05/11/16 05/11/16 22:30 22:37 22:46 Temperature Pulse Rate 89 89 88 Respiratory 16 17 15 Rate Blood Pressure 92/65 92/65 92/65 O2 Sat by Pulse 97 97 98 Oximetry 05/11/16 05/11/16 05/11/16 22:48 22:56 23:00 Temperature Pulse Rate 89 89 89 Respiratory 15 16 16 Rate Blood Pressure 92/65 107/67 O2 Sat by Pulse 97 97 98 Oximetry 05/11/16 05/11/16 05/11/16 23:05 23:16 23:18 Temperature Pulse Rate 89 91 H 89 Respiratory 16 13 15 Rate Blood Pressure 107/67 107/67 107/67 O2 Sat by Pulse 97 98 97 Oximetry 05/11/16 05/11/16 05/12/16 23:30 23:46 00:00 Temperature 98.7 F Pulse Rate 88 89 90 Respiratory 15 16 18 Rate Blood Pressure 105/62 107/67 115/71 O2 Sat by Pulse 96 96 97 Oximetry 05/12/16 05/12/16 05/12/16 00:08 00:16 00:30 Temperature Pulse Rate 91 H 92 H 90 Respiratory 18 15 16 Rate Blood Pressure 115/71 115/71 112/71 O2 Sat by Pulse 98 97 97 Oximetry 05/12/16 05/12/16 05/12/16 00:46 01:00 01:16 Temperature Pulse Rate 89 90 92 H Respiratory 16 15 13 Rate Blood Pressure 112/71 117/73 117/73 O2 Sat by Pulse 97 97 98 Oximetry 05/12/16 05/12/16 05/12/16 01:30 01:46 02:00 Temperature Pulse Rate 89 88 89 Respiratory 15 16 16 Rate Blood Pressure 117/70 117/70 108/68 O2 Sat by Pulse 97 97 97 Oximetry 05/12/16 05/12/16 05/12/16 02:16 02:30 02:44 Temperature Pulse Rate 86 85 87 Respiratory 16 15 13 Rate Blood Pressure 108/68 103/66 103/66 O2 Sat by Pulse 97 97 97 Oximetry 05/12/16 05/12/16 05/12/16 02:46 03:00 03:16 Temperature Pulse Rate 86 86 91 H Respiratory 16 15 22 Rate Blood Pressure 103/66 103/61 103/61 O2 Sat by Pulse 97 97 97 Oximetry 05/12/16 05/12/16 05/12/16 03:30 03:46 04:00 Temperature 98.1 F Pulse Rate 88 94 H 90 Respiratory 14 15 13 Rate Blood Pressure 120/77 120/77 123/79 O2 Sat by Pulse 97 98 98 Oximetry 05/12/16 05/12/16 05/12/16 04:04 04:16 04:30 Temperature Pulse Rate 90 90 95 H Respiratory 14 15 16 Rate Blood Pressure 123/79 123/79 132/89 O2 Sat by Pulse 97 97 97 Oximetry 05/12/16 05/12/16 05/12/16 04:46 05:00 05:06 Temperature Pulse Rate 97 H 94 H 92 H Respiratory 15 13 16 Rate Blood Pressure 123/79 139/97 139/97 O2 Sat by Pulse 98 97 98 Oximetry 05/12/16 05/12/16 05/12/16 05:16 05:30 05:46 Temperature Pulse Rate 93 H 96 H 103 H Respiratory 12 13 16 Rate Blood Pressure 139/97 160/95 172/99 O2 Sat by Pulse 97 97 98 Oximetry 05/12/16 05/12/16 05/12/16 06:00 06:02 06:06 Temperature Pulse Rate 118 H 118 H 113 H Respiratory 17 11 L Rate Blood Pressure 183/105 183/105 172/95 O2 Sat by Pulse 97 98 Oximetry 05/12/16 05/12/16 05/12/16 06:16 06:30 06:46 Temperature Pulse Rate 124 H 128 H 128 H Respiratory 14 15 12 Rate Blood Pressure 183/105 154/90 154/90 O2 Sat by Pulse 97 97 96 Oximetry 05/12/16 05/12/16 05/12/16 07:00 07:16 07:30 Temperature Pulse Rate 128 H 127 H 126 H Respiratory 14 16 12 Rate Blood Pressure 163/86 163/86 147/81 O2 Sat by Pulse 97 96 97 Oximetry 05/12/16 05/12/16 07:46 08:00 Temperature 97.7 F Pulse Rate 126 H 125 H Respiratory 13 14 Rate Blood Pressure 147/81 127/81 O2 Sat by Pulse 96 96 Oximetry General appearance: Present: no acute distress, well-nourished - Respiratory Respiratory: bilateral: CTA - Cardiovascular Rhythm: regular Heart Sounds: Present: S1 & S2 Extremities: no ischemia - Gastrointestinal General gastrointestinal: Present: soft, non-tender, non-distended Rectal Exam: deferred - Genitourinary Male genitourinary: deferred - Integumentary Integumentary: clear, warm, dry - Labs CBC & Chem 7: 05/11/16 04:14 05/11/16 04:14 Labs: Abnormal lab results 05/11/16 05/11/16 05/11/16 Range/Units 07:51 08:58 11:45 POC Glucose 64 L 243 H 232 H (70-105) 05/11/16 05/11/16 Range/Units 16:20 21:20 POC Glucose 202 H 132 H (70-105)
[2016-05-12] MEDS: COREG PO SCH ×2 (08:34→09:20)
[2016-05-12] MEDS: PLAVIX PO SCH (09:14)
[2016-05-12] MEDS: HALFPRIN EC PO SCH (09:14)
[2016-05-12] MEDS: LOVENOX SUB-Q SCH (09:15)
[2016-05-12] MEDS: PEPCID PO SCH ×2 (09:15→22:09)
[2016-05-12] MEDS: KEPPRA PO SCH ×2 (09:15→22:08)
[2016-05-12] MEDS: FLOMAX PO SCH (09:15)
[2016-05-12] MEDS: PROzac PO SCH (09:15)
[2016-05-12] MEDS ORDERED: ZESTRIL PO SCH (10:00)
[2016-05-12] MEDS ORDERED: NACL 0.9% 500 ML 500 ML IV ONE (12:28)
--- NOTE | 2016-05-12 19:02 | Progress Note ---
Assessment and Plan - Patient Problems (1) Hypertensive emergency Current Visit: Yes Status: Resolved Plan to address problem: titrate cardene drip and clinically indicated, monitor bp The high probability of a clinically significant, sudden or life threatening deterioration of the [cardiac, renal] system(s) required my full and direct attention, intervention and personal management. The aggregate critical care time was [45] minutes. This time is in addition to time spent performing reported procedures but includes the following: [x] Data Review and interpretation [x] Patient assessment and monitoring of vital signs [x] Documentation [x] Medication orders and management (2) Type I diabetes mellitus, uncontrolled Current Visit: No Status: Chronic Qualifiers: Diabetes mellitus complication status: with hyperglycemia Qualified Code(s) : E10.65 - Type 1 diabetes mellitus with hyperglycemia Plan to address problem: ADA diet, insulin accu check (3) DVT prophylaxis Current Visit: Yes Status: Acute History Interval history: Pt resting in bed, Pt denies pain, No reported nursing events. Pt BP Improved on cardene drip. Will transfer to medical floor. Hospitalist Physical - Constitutional Vitals: Temp Pulse Resp BP Pulse Ox 98.3 F 103 H 16 162/89 94 05/12/16 16:20 05/12/16 16:28 05/12/16 16:20 05/12/16 16:20 05/12/16 12:15 General appearance: Present: no acute distress, well-nourished - EENT Eyes: Present: PERRL, EOM intact ENT: hearing intact - Neck Neck: Present: supple - Respiratory Respiratory effort: normal Respiratory: bilateral: CTA - Cardiovascular Rhythm: regular Heart Sounds: Present: S1 & S2 - Extremities Extremities: no ischemia - Abdominal General gastrointestinal: soft, non-tender, non-distended - Integumentary Integumentary: Present: clear, dry - Psychiatric Psychiatric: appropriate mood/affect, cooperative - Neurologic Neurologic: CNII-XII intact Results - Labs CBC & Chem 7: 05/11/16 04:14 05/11/16 04:14 Labs: Laboratory Last Values WBC 9.1 K/mm3 (4.5-11.0) 05/11/16 04:14 RBC 4.35 M/mm3 (3.65-5.03) 05/11/16 04:14 Hgb 12.9 gm/dl (11.8-15.2) 05/11/16 04:14 Hct 38.7 % (35.5-45.6) 05/11/16 04:14 MCV 89 fl (84-94) 05/11/16 04:14 MCH 30 pg (28-32) 05/11/16 04:14 MCHC 33 % (32-34) 05/11/16 04:14 RDW 14.0 % (13.2-15.2) 05/11/16 04:14 Plt Count 374 K/mm3 (140-440) 05/11/16 04:14 Lymph % (Auto) 28.4 % (13.4-35.0) 05/11/16 04:14 [place] % (Auto) 9.9 % (0.0-7.3) H 05/11/16 04:14 Eos % (Auto) 1.6 % (0.0-4.3) 05/11/16 04:14 Baso % (Auto) 0.4 % (0.0-1.8) 05/11/16 04:14 Lymph # 2.6 K/mm3 (1.2-5.4) 05/11/16 04:14 [place] # 0.9 K/mm3 (0.0-0.8) H 05/11/16 04:14 Eos # 0.1 K/mm3 (0.0-0.4) 05/11/16 04:14 Baso # 0.0 K/mm3 (0.0-0.1) 05/11/16 04:14 Seg Neutrophils % 59.7 % (40.0-70.0) 05/11/16 04:14 Seg Neutrophils # 5.4 K/mm3 (1.8-7.7) 05/11/16 04:14 PT 11.5 Sec. (12.2-14.9) L 05/10/16 06:28 INR 0.85 (0.87-1.13) L 05/10/16 06:28 APTT 28.1 Sec. (24.2-36.6) 05/10/16 06:28 Sodium 139 mmol/L (137-145) 05/11/16 04:14 Potassium 3.7 mmol/L (3.6-5.0) 05/11/16 04:14 Chloride 101.1 mmol/L (98-107) 05/11/16 04:14 Carbon Dioxide 26 mmol/L (22-30) 05/11/16 04:14 Anion Gap 16 mmol/L 05/11/16 04:14 BUN 21 mg/dL (9-20) H 05/11/16 04:14 Creatinine 1.1 mg/dL (0.8-1.5) 05/11/16 04:14 Estimated GFR > 60 ml/min 05/11/16 04:14 BUN/Creatinine Ratio 19.09 % 05/11/16 04:14 Glucose 93 mg/dL (75-100) 05/11/16 04:14 POC Glucose 301 (70-105) H 05/12/16 07:55 Lactic Acid 1.4 mmol/L (0.7-2.0) 05/10/16 06:28 Calcium 8.9 mg/dL (8.4-10.2) 05/11/16 04:14 Magnesium 1.7 mg/dL (1.7-2.3) 05/10/16 06:28 Total Bilirubin 0.2 mg/dL (0.1-1.2) 05/11/16 04:14 Direct Bilirubin < 0.2 mg/dL (0-0.2) 05/10/16 06:28 AST 16 units/L (5-40) 05/11/16 04:14 ALT 16 units/L (7-56) 05/11/16 04:14 Alkaline Phosphatase 110 units/L (35-129) 05/11/16 04:14 Total Creatine Kinase 58 units/L (55-170) 05/10/16 06:28 CK-MB (CK-2) 2.7 ng/mL (0.0-4.0) 05/10/16 06:28 CK-MB (CK-2) Rel Index 4.6 (0-4) H 05/10/16 06:28 Troponin T < 0.010 ng/mL (0.00-0.029) 05/10/16 06:28 Total Protein 6.7 g/dL (6.3-8.2) 05/11/16 04:14 Albumin 3.4 g/dL (3.9-5) L 05/11/16 04:14 Albumin/Globulin Ratio 1.0 % 05/11/16 04:14 Urine Color Straw (Yellow) 05/10/16 08:45 Urine Turbidity Clear (Clear) 05/10/16 08:45 Urine pH 6.0 (5.0-7.0) 05/10/16 08:45 Ur Specific [place] 1.012 (1.003-1.030) 05/10/16 08:45 Urine Protein 100 mg/dl mg/dL (Negative) 05/10/16 08:45 Urine Glucose (UA) >=500 mg/dL (Negative) 05/10/16 08:45 Urine Ketones 20 mg/dL (Negative) 05/10/16 08:45 Urine Blood Neg (Negative) 05/10/16 08:45 Urine Nitrite Neg (Negative) 05/10/16 08:45 Urine Bilirubin Neg (Negative) 05/10/16 08:45 Urine Urobilinogen < 2.0 mg/dL (<2.0) 05/10/16 08:45 Ur Leukocyte Esterase Neg (Negative) 05/10/16 08:45 Urine WBC (Auto) < 1.0 /HPF (0.0-6.0) 05/10/16 08:45 Urine RBC (Auto) 4.0 /HPF (0.0-6.0) 05/10/16 08:45 U Epithel Cells (Auto) < 1.0 /HPF (0-13.0) 05/10/16 08:45 Urine Mucus Few /HPF 05/10/16 08:45 Ketones 6.1 mg/dL (0.2-2.8) H 05/10/16 06:28
[2016-05-12] MEDS: LEVEMIR SUB-Q SCH (22:15)
[2016-05-13] MEDS: NOVOLOG SUB-Q SCH ×7 (09:12→22:21)
[2016-05-13] MEDS: PROzac PO SCH (10:59)
[2016-05-13] MEDS: HALFPRIN EC PO SCH (11:00)
[2016-05-13] MEDS: KEPPRA PO SCH ×2 (11:00→21:28)
[2016-05-13] MEDS: FLOMAX PO SCH (11:00)
[2016-05-13] MEDS: PLAVIX PO SCH (11:00)
[2016-05-13] MEDS: LOVENOX SUB-Q SCH (11:00)
[2016-05-13] MEDS: PEPCID PO SCH ×2 (11:00→21:28)
[2016-05-13] MEDS: APRESOLINE IV PRN (11:03)
[2016-05-13] MEDS: ZESTRIL PO SCH ×2 (11:03→11:13)
[2016-05-13] MEDS: NACL 0.9% 1000 ML 1,000 ML IV SCH (12:46)
[2016-05-13] MEDS: LEVEMIR SUB-Q SCH (21:29)
[2016-05-14] MEDS: NACL 0.9% 1000 ML 1,000 ML IV SCH (02:00)
[2016-05-14] MEDS: APRESOLINE IV PRN (04:57)
--- NOTE | 2016-05-14 05:40 | Progress Note ---
Assessment and Plan - Patient Problems (1) Hypertensive emergency Current Visit: Yes Status: Resolved Plan to address problem: Pt weaned off cardene drip. Pending urine VMA, monitor bp q shift, (2) Type I diabetes mellitus, uncontrolled Current Visit: No Status: Chronic Qualifiers: Diabetes mellitus complication status: with hyperglycemia Qualified Code(s) : E10.65 - Type 1 diabetes mellitus with hyperglycemia Plan to address problem: ADA diet, insulin accu check (3) DVT prophylaxis Current Visit: Yes Status: Acute History Interval history: Pt resting in bed, Pt denies pain, No reported nursing events. Pt has wide BP fluctuations systolic ranging from 120-190 over 2-3 hours. No reported nursing events. Hospitalist Physical - Constitutional Vitals: Temp Pulse Resp BP Pulse Ox 98.2 F 84 20 183/103 96 05/14/16 05:34 05/14/16 05:34 05/14/16 05:34 05/14/16 05:34 05/14/16 05:34 General appearance: Present: no acute distress, well-nourished - EENT Eyes: Present: PERRL, EOM intact ENT: hearing intact - Neck Neck: Present: supple - Respiratory Respiratory effort: normal Respiratory: bilateral: CTA - Cardiovascular Rhythm: regular Heart Sounds: Present: S1 & S2 - Extremities Extremities: no ischemia Peripheral Pulses: within normal limits - Abdominal General gastrointestinal: soft, non-tender, non-distended - Integumentary Integumentary: Present: clear, dry - Psychiatric Psychiatric: appropriate mood/affect, cooperative - Neurologic Neurologic: CNII-XII intact Results - Labs CBC & Chem 7: 05/11/16 04:14 05/11/16 04:14 Labs: Laboratory Last Values WBC 9.1 K/mm3 (4.5-11.0) 05/11/16 04:14 RBC 4.35 M/mm3 (3.65-5.03) 05/11/16 04:14 Hgb 12.9 gm/dl (11.8-15.2) 05/11/16 04:14 Hct 38.7 % (35.5-45.6) 05/11/16 04:14 MCV 89 fl (84-94) 05/11/16 04:14 MCH 30 pg (28-32) 05/11/16 04:14 MCHC 33 % (32-34) 05/11/16 04:14 RDW 14.0 % (13.2-15.2) 05/11/16 04:14 Plt Count 374 K/mm3 (140-440) 05/11/16 04:14 Lymph % (Auto) 28.4 % (13.4-35.0) 05/11/16 04:14 [place] % (Auto) 9.9 % (0.0-7.3) H 05/11/16 04:14 Eos % (Auto) 1.6 % (0.0-4.3) 05/11/16 04:14 Baso % (Auto) 0.4 % (0.0-1.8) 05/11/16 04:14 Lymph # 2.6 K/mm3 (1.2-5.4) 05/11/16 04:14 [place] # 0.9 K/mm3 (0.0-0.8) H 05/11/16 04:14 Eos # 0.1 K/mm3 (0.0-0.4) 05/11/16 04:14 Baso # 0.0 K/mm3 (0.0-0.1) 05/11/16 04:14 Seg Neutrophils % 59.7 % (40.0-70.0) 05/11/16 04:14 Seg Neutrophils # 5.4 K/mm3 (1.8-7.7) 05/11/16 04:14 PT 11.5 Sec. (12.2-14.9) L 05/10/16 06:28 INR 0.85 (0.87-1.13) L 05/10/16 06:28 APTT 28.1 Sec. (24.2-36.6) 05/10/16 06:28 Sodium 139 mmol/L (137-145) 05/11/16 04:14 Potassium 3.7 mmol/L (3.6-5.0) 05/11/16 04:14 Chloride 101.1 mmol/L (98-107) 05/11/16 04:14 Carbon Dioxide 26 mmol/L (22-30) 05/11/16 04:14 Anion Gap 16 mmol/L 05/11/16 04:14 BUN 21 mg/dL (9-20) H 05/11/16 04:14 Creatinine 1.1 mg/dL (0.8-1.5) 05/11/16 04:14 Estimated GFR > 60 ml/min 05/11/16 04:14 BUN/Creatinine Ratio 19.09 % 05/11/16 04:14 Glucose 93 mg/dL (75-100) 05/11/16 04:14 POC Glucose 112 (70-105) H 05/13/16 21:10 Lactic Acid 1.4 mmol/L (0.7-2.0) 05/10/16 06:28 Calcium 8.9 mg/dL (8.4-10.2) 05/11/16 04:14 Magnesium 1.7 mg/dL (1.7-2.3) 05/10/16 06:28 Total Bilirubin 0.2 mg/dL (0.1-1.2) 05/11/16 04:14 Direct Bilirubin < 0.2 mg/dL (0-0.2) 05/10/16 06:28 AST 16 units/L (5-40) 05/11/16 04:14 ALT 16 units/L (7-56) 05/11/16 04:14 Alkaline Phosphatase 110 units/L (35-129) 05/11/16 04:14 Total Creatine Kinase 58 units/L (55-170) 05/10/16 06:28 CK-MB (CK-2) 2.7 ng/mL (0.0-4.0) 05/10/16 06:28 CK-MB (CK-2) Rel Index 4.6 (0-4) H 05/10/16 06:28 Troponin T < 0.010 ng/mL (0.00-0.029) 05/10/16 06:28 Total Protein 6.7 g/dL (6.3-8.2) 05/11/16 04:14 Albumin 3.4 g/dL (3.9-5) L 05/11/16 04:14 Albumin/Globulin Ratio 1.0 % 05/11/16 04:14 Urine Color Straw (Yellow) 05/10/16 08:45 Urine Turbidity Clear (Clear) 05/10/16 08:45 Urine pH 6.0 (5.0-7.0) 05/10/16 08:45 Ur Specific [place] 1.012 (1.003-1.030) 05/10/16 08:45 Urine Protein 100 mg/dl mg/dL (Negative) 05/10/16 08:45 Urine Glucose (UA) >=500 mg/dL (Negative) 05/10/16 08:45 Urine Ketones 20 mg/dL (Negative) 05/10/16 08:45 Urine Blood Neg (Negative) 05/10/16 08:45 Urine Nitrite Neg (Negative) 05/10/16 08:45 Urine Bilirubin Neg (Negative) 05/10/16 08:45 Urine Urobilinogen < 2.0 mg/dL (<2.0) 05/10/16 08:45 Ur Leukocyte Esterase Neg (Negative) 05/10/16 08:45 Urine WBC (Auto) < 1.0 /HPF (0.0-6.0) 05/10/16 08:45 Urine RBC (Auto) 4.0 /HPF (0.0-6.0) 05/10/16 08:45 U Epithel Cells (Auto) < 1.0 /HPF (0-13.0) 05/10/16 08:45 Urine Mucus Few /HPF 05/10/16 08:45 Ketones 6.1 mg/dL (0.2-2.8) H 05/10/16 06:28
[2016-05-14] MEDS ORDERED: ZESTRIL PO SCH (08:56)
--- NOTE | 2016-05-14 08:59 | Progress Note ---
Assessment and Plan Assessment and plan: (1) Hypertensive emergency - Increased lisinopril dose and add amlodipine (2) Type I diabetes mellitus, uncontrolled Current Visit: No Status: Chronic Qualifiers: Diabetes mellitus complication status: with hyperglycemia Qualified Code(s) : E10.65 - Type 1 diabetes mellitus with hyperglycemia Plan to address problem: ADA diet, insulin accu check (3) DVT prophylaxis Current Visit: Yes Status: Acute History Interval history: patient was seen and evaluated this morning. No new complaints Hospitalist Physical - Physical exam Narrative exam: Not in cardiopulmonary distress. The patient appeared well nourished and normally developed. Vital signs as documented. Head exam is unremarkable. No scleral icterus . Neck is without jugular venous distension, thyromegaly, or carotid bruits. Lungs are clear to auscultation. Cardiac exam reveals regular rate and Rhythm. First and second heart sounds normal. No murmurs, rubs or gallops. Abdominal exam reveals normal bowel sounds, no masses, no organomegaly and no aortic enlargement. Extremities are nonedematous and both femoral and pedal pulses are normal. 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 No focal weakness. - Constitutional Vitals: Temp Pulse Resp BP Pulse Ox 98.0 F 104 H 20 131/66 96 05/14/16 08:27 05/14/16 08:27 05/14/16 08:27 05/14/16 08:27 05/14/16 08:27 General appearance: Present: no acute distress, well-nourished Results - Labs CBC & Chem 7: 05/11/16 04:14 05/11/16 04:14 Labs: Laboratory Last Values WBC 9.1 K/mm3 (4.5-11.0) 05/11/16 04:14 RBC 4.35 M/mm3 (3.65-5.03) 05/11/16 04:14 Hgb 12.9 gm/dl (11.8-15.2) 05/11/16 04:14 Hct 38.7 % (35.5-45.6) 05/11/16 04:14 MCV 89 fl (84-94) 05/11/16 04:14 MCH 30 pg (28-32) 05/11/16 04:14 MCHC 33 % (32-34) 05/11/16 04:14 RDW 14.0 % (13.2-15.2) 05/11/16 04:14 Plt Count 374 K/mm3 (140-440) 05/11/16 04:14 Lymph % (Auto) 28.4 % (13.4-35.0) 05/11/16 04:14 [place] % (Auto) 9.9 % (0.0-7.3) H 05/11/16 04:14 Eos % (Auto) 1.6 % (0.0-4.3) 05/11/16 04:14 Baso % (Auto) 0.4 % (0.0-1.8) 05/11/16 04:14 Lymph # 2.6 K/mm3 (1.2-5.4) 05/11/16 04:14 [place] # 0.9 K/mm3 (0.0-0.8) H 05/11/16 04:14 Eos # 0.1 K/mm3 (0.0-0.4) 05/11/16 04:14 Baso # 0.0 K/mm3 (0.0-0.1) 05/11/16 04:14 Seg Neutrophils % 59.7 % (40.0-70.0) 05/11/16 04:14 Seg Neutrophils # 5.4 K/mm3 (1.8-7.7) 05/11/16 04:14 PT 11.5 Sec. (12.2-14.9) L 05/10/16 06:28 INR 0.85 (0.87-1.13) L 05/10/16 06:28 APTT 28.1 Sec. (24.2-36.6) 05/10/16 06:28 Sodium 139 mmol/L (137-145) 05/11/16 04:14 Potassium 3.7 mmol/L (3.6-5.0) 05/11/16 04:14 Chloride 101.1 mmol/L (98-107) 05/11/16 04:14 Carbon Dioxide 26 mmol/L (22-30) 05/11/16 04:14 Anion Gap 16 mmol/L 05/11/16 04:14 BUN 21 mg/dL (9-20) H 05/11/16 04:14 Creatinine 1.1 mg/dL (0.8-1.5) 05/11/16 04:14 Estimated GFR > 60 ml/min 05/11/16 04:14 BUN/Creatinine Ratio 19.09 % 05/11/16 04:14 Glucose 93 mg/dL (75-100) 05/11/16 04:14 POC Glucose 112 (70-105) H 05/13/16 21:10 Lactic Acid 1.4 mmol/L (0.7-2.0) 05/10/16 06:28 Calcium 8.9 mg/dL (8.4-10.2) 05/11/16 04:14 Magnesium 1.7 mg/dL (1.7-2.3) 05/10/16 06:28 Total Bilirubin 0.2 mg/dL (0.1-1.2) 05/11/16 04:14 Direct Bilirubin < 0.2 mg/dL (0-0.2) 05/10/16 06:28 AST 16 units/L (5-40) 05/11/16 04:14 ALT 16 units/L (7-56) 05/11/16 04:14 Alkaline Phosphatase 110 units/L (35-129) 05/11/16 04:14 Total Creatine Kinase 58 units/L (55-170) 05/10/16 06:28 CK-MB (CK-2) 2.7 ng/mL (0.0-4.0) 05/10/16 06:28 CK-MB (CK-2) Rel Index 4.6 (0-4) H 05/10/16 06:28 Troponin T < 0.010 ng/mL (0.00-0.029) 05/10/16 06:28 Total Protein 6.7 g/dL (6.3-8.2) 05/11/16 04:14 Albumin 3.4 g/dL (3.9-5) L 05/11/16 04:14 Albumin/Globulin Ratio 1.0 % 05/11/16 04:14 Urine Color Straw (Yellow) 05/10/16 08:45 Urine Turbidity Clear (Clear) 05/10/16 08:45 Urine pH 6.0 (5.0-7.0) 05/10/16 08:45 Ur Specific [place] 1.012 (1.003-1.030) 05/10/16 08:45 Urine Protein 100 mg/dl mg/dL (Negative) 05/10/16 08:45 Urine Glucose (UA) >=500 mg/dL (Negative) 05/10/16 08:45 Urine Ketones 20 mg/dL (Negative) 05/10/16 08:45 Urine Blood Neg (Negative) 05/10/16 08:45 Urine Nitrite Neg (Negative) 05/10/16 08:45 Urine Bilirubin Neg (Negative) 05/10/16 08:45 Urine Urobilinogen < 2.0 mg/dL (<2.0) 05/10/16 08:45 Ur Leukocyte Esterase Neg (Negative) 05/10/16 08:45 Urine WBC (Auto) < 1.0 /HPF (0.0-6.0) 05/10/16 08:45 Urine RBC (Auto) 4.0 /HPF (0.0-6.0) 05/10/16 08:45 U Epithel Cells (Auto) < 1.0 /HPF (0-13.0) 05/10/16 08:45 Urine Mucus Few /HPF 05/10/16 08:45 Ketones 6.1 mg/dL (0.2-2.8) H 05/10/16 06:28
[2016-05-14] MEDS: NOVOLOG SUB-Q SCH ×6 (09:10→17:33)
[2016-05-14] MEDS: FLOMAX PO SCH (11:03)
[2016-05-14] MEDS: PLAVIX PO SCH (11:03)
[2016-05-14] MEDS: PEPCID PO SCH (11:03)
[2016-05-14] MEDS: PROzac PO SCH (11:03)
[2016-05-14] MEDS: HALFPRIN EC PO SCH (11:03)
[2016-05-14] MEDS: LOVENOX SUB-Q SCH (11:04)
[2016-05-14] MEDS: KEPPRA PO SCH (11:04)
[2016-05-14] MEDS: NORVASC PO SCH ×2 (11:08→11:15)
[2016-05-14] MEDS: ZESTRIL PO SCH ×2 (11:09→11:15)
--- NOTE | 2016-05-14 12:52 | Discharge Summary ---
Providers - Providers Date of Admission: 05/10/16 11:21 Date of discharge: 05/14/16 Attending physician: PRANAV MONAE MD Primary care physician: ELISSA DEVLIN MD Hospitalization Reason for admission: Hypertensive emergency Condition: Stable Hospital course: Patient was admitted for hypertensive emergency and he was on a drip and was controlled and transferred to the floor. In the floor his blood pressure was high and I adjusted his medications and his blood pressure is well controlled now. Patient is stable to discharge. I discussed with the patient and his son about checking his BP at home and also to be followed by his PCP for medication adjustment. Disposition: DISCHARGED TO HOME OR SELFCARE Time spent for discharge: 31 minutes - Discharge Diagnoses (1) Hypertensive emergency Status: Acute Core Measure Documentation - Palliative Care Palliative Care/ Comfort Measures: Not Applicable - Core Measures Any of the following diagnoses?: none Exam - Physical Exam Narrative exam: Not in cardiopulmonary distress. The patient appeared well nourished and normally developed. Vital signs as documented. Head exam is unremarkable. No scleral icterus . Neck is without jugular venous distension, thyromegaly, or carotid bruits. Lungs are clear to auscultation. Cardiac exam reveals regular rate and Rhythm. First and second heart sounds normal. No murmurs, rubs or gallops. Abdominal exam reveals normal bowel sounds, no masses, no organomegaly and no aortic enlargement. Extremities are nonedematous and both femoral and pedal pulses are normal. 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 No focal weakness. - Constitutional Vitals: Temp Pulse Resp BP Pulse Ox 98.2 F 88 16 95/58 98 05/14/16 12:38 05/14/16 12:38 05/14/16 12:38 05/14/16 12:38 05/14/16 12:38 Plan Activity: no restrictions Diet: low salt, diabetic Follow up with: PRIMARY CARE, [Primary Care Provider] - 7 Days Prescriptions: amLODIPine [Norvasc] 5 mg PO QDAY #30 tablet Lisinopril [Zestril TAB] 20 mg PO QDAY #30 tablet
[2016-05-14 17:19] VITALS: BP 165/93
== END 2016-05-14 19:39 | disposition home health service (06) | DRG 305 ==
LOC: ED 04:44 → 4A 11:21 → CC1 16:25 → 4A 05-12 10:01
PROVIDERS: ADMIT Internal Medicine; ATTEND Internal Medicine
DX: I16.1 Hypertensive emergency (principal); I25.10 Atherosclerotic heart disease of native coronary artery without angina pectoris; E78.5 Hyperlipidemia, unspecified; N40.0 Benign prostatic hyperplasia without lower urinary tract symptoms; E10.8 Type 1 diabetes mellitus with unspecified complications; N18.3 Chronic kidney disease, stage 3 (moderate); E10.22 Type 1 diabetes mellitus with diabetic chronic kidney disease; I12.9 Hypertensive chronic kidney disease with stage 1 through stage 4 chronic kidney disease, or unspecified chronic kidney disease; K21.9 Gastro-esophageal reflux disease without esophagitis; F32.9 Major depressive disorder, single episode, unspecified; F41.9 Anxiety disorder, unspecified; E10.65 Type 1 diabetes mellitus with hyperglycemia; E10.40 Type 1 diabetes mellitus with diabetic neuropathy, unspecified; Z79.82 Long term (current) use of aspirin; Z79.4 Long term (current) use of insulin; Z79.899 Other long term (current) drug therapy; Z82.49 Family history of ischemic heart disease and other diseases of the circulatory system; Z86.73 Personal history of transient ischemic attack (TIA), and cerebral infarction without residual deficits
CPT/HCPCS: 36415; 71010; 80048; 80053; 80074; 81001; 82010; 82140; 82550; 82553; 82962; 83735; 83880; 84484; 85025; 85610; 85730; 87040; 87086; 93005; 93010; 96361; 96365; 96375; A9270-GY; J0360; J0696; J1170; J1650; J1815; J1818; J2405; J7030; J7040